=== PATIENT | female | born 1960 | race Caucasian/White ===

== ENCOUNTER → 2017-09-13 15:42 | Outpatient (CLI) | payer BC, SELFPAY ==
--- NOTE | 2017-09-13 15:45 | MM_ITS ---
MM Dig screening mamm BI w/CAD CAD Screening COMPARISON: Digital mammograms 08/24/2015 and 08/30/2016 INDICATION: There is no personal or family history of breast cancer. There has been a previous biopsy left breast for benign disease. TECHNIQUE: Standard CC and MLO images were obtained. R2 CAD reviewed. FINDINGS: Again noted is a diffusely dense and heterogenic parenchymal pattern somewhat lessening the sensitivity of mammography. There are few benign-appearing calcifications in each breast. There is a mole marker in each breast. There is no new or suspicious lesion and there are no suspicious microcalcifications. IMPRESSION: Stable exam with dense parenchymal pattern and no suspicious lesion seen BI-RADS Category: 2 Benign Finding(s) RECOMMENDED FOLLOW-UP: 1YR - 1 YEAR FOLLOW-UP (A letter has been sent to the patient regarding results of the study.)
== END ==
PROVIDERS: PCP Family Medicine; Visit Provider Nurse Practitioner Obstetrics & Gynecology
DX: Z12.31 Encounter for screening mammogram for malignant neoplasm of breast (principal)
CPT/HCPCS: 77067

== ENCOUNTER 2017-10-22 19:51 | Emergency (ER) | payer BC, SELFPAY ==
[2017-10-22 20:04] VITALS: BP 165/84; PULSE 88; RESP 18; TEMP 36.6; O2SAT 100; BMI 29.2
--- NOTE | 2017-10-22 20:08 | HMH.EDUTC ---
[facility] [place] Disposition Clinical Impression: URI (upper respiratory infection) Qualifiers: URI type: unspecified URI Qualified Code(s): J06.9 - Acute upper respiratory infection, unspecified Disposition: Home, Self-Care Condition on Discharge: Good Instructions: Sore Throat, DI for Cough -- Adult, DI for Nasal Congestion Additional Instructions: * Monitor Temp. Tylenol and/or Ibuprofen as needed. ER if fever is no less than 101 despite alternating Tylenol and Ibuprofen * Encourage fluids, water, Gatorade, powerade, pedialyte if infant/toddler/or child * Warm salt water gargles for throat irritation *Warm fluids *Sore throat lozenges *Sleep elevated *humidifier or vaporizer Lots of rest Increase fluids, water, Gatorade, powerade *Flonase 2 sprays each nostril daily but may take 2-3 days to notice improvement with it Follow up IMMEDIATELY for new or worsening of symptoms OR no noticeable improvement over the next 48-72 hours. 911 immediately for any life threatening symptoms such as chest pain or difficulty breathing Prescriptions: Azithromycin [Z-David 250mg Tab] 250 mg PO UD DOSE PK #6 tab Dextromethorphan Polistirex [Delsym] 10 ml PO Q12H PRN #350 avtar.er.12h PRN Reason: Cough Fluticasone Propionate [Flonase 50mcg nasal spray 16gm] 2 spr NS DAILY #1 bottle predniSONE [Prednisone 20mg Tab] 20 mg PO BID #10 tab Referrals: Cash Schrader MD [Primary Care Provider] - Forms: Work/School Release Time of Disposition: 20:22 Medical Decision Making - Medical Records Medical records reviewed: Yes: I reviewed the patient's medical records. Vital Signs: 10/22/17 20:04 Temperature 97.8 F Temperature Source Temporal Artery Scan Pulse Rate [Right] 88 Respiratory Rate 18 Blood Pressure [Right Arm] 165/84 Blood Pressure Mean [Right Arm] 111 Blood Pressure Source [Right Arm] Automatic Cuff Blood Pressure Position [Right Arm] Sitting 02 Sat by Pulse Oximetry 100 Oxygen Delivery Method Room Air - Carlos Inquiry Pt receiving controlled substance: No Carlos was queried for this patient: No [facility] [place] HPI - General Stated complaint: congestion Mode of Arrival: Ambulatory Source of Information: Patient Limitations: No Limitations Description of Symptoms (Recalled from Triage Doc. by RN): COUGH, CONGESTION BEGAN SATURDAY HEENT Symptoms (Recalled from RN notes): Yes Resp Symptoms (Recalled from RN notes): No Skin Symptoms (Recalled from RN notes): No MS Symptoms (Recalled from RN notes): No Functional Status (Recalled from RN notes): N - History of Present Illness Provider Complaint: Patient state that she has not been feeling well since Saturday States that she is having sinus drainage cough and sore throat State that she has taken several over the counter medications but none have helped much States that she has continued to have sore throat and drainage and felt like it may be trying to move down to her chest area and she wanted to get seen and treated before then - Related Data Previous Rx's Medication Instructions Recorded Azithromycin [Z-David 250mg Tab] 250 mg PO UD DOSE PK #6 tab 10/22/17 Dextromethorphan Polistirex 10 ml PO Q12H PRN #350 avtar.er.12h 10/22/17 [Delsym] Fluticasone Propionate [Flonase 2 spr NS DAILY #1 bottle 10/22/17 50mcg nasal spray 16gm] predniSONE [Prednisone 20mg 20 mg PO BID #10 tab 10/22/17 Tab] Allergies Allergy/AdvReac Type Severity Reaction Status Date / Time No Known Allergies Allergy Verified 10/22/17 20:07 - Worker's Comp Is this a Worker's Comp case?: No [facility] History I have reviewed the patient's past medical history: Yes Medical History: Reports:: Hypertension - Social History Alcohol Intake: never - Psychiatric History Expresses thoughts of harming self/others: None Suicide Plan Description: No Plan ROS Obtained: Yes All systems reviewed & no additional complaints - ENT Ears, Nose, Mouth, and Throat: Reports headache(s), Reports nasal congestion, Re
--- NOTE | 2017-10-22 20:16 | ED_ITS ---
[facility] [place] Clinical Impression: URI (upper respiratory infection) Qualifiers: URI type: unspecified URI Qualified Code(s): J06.9 - Acute upper respiratory infection, unspecified Disposition: Home, Self-Care Condition on Discharge: Good Instructions: Sore Throat, DI for Cough -- Adult, DI for Nasal Congestion Additional Instructions: * Monitor Temp. Tylenol and/or Ibuprofen as needed. ER if fever is no less than 101 despite alternating Tylenol and Ibuprofen * Encourage fluids, water, Gatorade, powerade, pedialyte if infant/toddler/or child * Warm salt water gargles for throat irritation *Warm fluids *Sore throat lozenges *Sleep elevated *humidifier or vaporizer Lots of rest Increase fluids, water, Gatorade, powerade *Flonase 2 sprays each nostril daily but may take 2-3 days to notice improvement with it Follow up IMMEDIATELY for new or worsening of symptoms OR no noticeable improvement over the next 48-72 hours. 911 immediately for any life threatening symptoms such as chest pain or difficulty breathing Prescriptions: Azithromycin [Z-David 250mg Tab] 250 mg PO UD DOSE PK #6 tab Dextromethorphan Polistirex [Delsym] 10 ml PO Q12H PRN #350 avtar.er.12h PRN Reason: Cough Fluticasone Propionate [Flonase 50mcg nasal spray 16gm] 2 spr NS DAILY #1 bottle predniSONE [Prednisone 20mg Tab] 20 mg PO BID #10 tab Referrals: Cash Schrader MD [Primary Care Provider] - Forms: Work/School Release Time of Disposition: 20:22 Medical Decision Making - Medical Records Medical records reviewed: Yes: I reviewed the patient's medical records. Vital Signs: 10/22/17 20:04 Temperature 97.8 F Temperature Source Temporal Artery Scan Pulse Rate [Right] 88 Respiratory Rate 18 Blood Pressure [Right Arm] 165/84 Blood Pressure Mean [Right Arm] 111 Blood Pressure Source [Right Arm] Automatic Cuff Blood Pressure Position [Right Arm] Sitting 02 Sat by Pulse Oximetry 100 Oxygen Delivery Method Room Air - Carlos Inquiry Pt receiving controlled substance: No Carlos was queried for this patient: No [facility] [place] HPI - General Stated complaint: congestion Mode of Arrival: Ambulatory Source of Information: Patient Limitations: No Limitations Description of Symptoms (Recalled from Triage Doc. by RN): COUGH, CONGESTION BEGAN SATURDAY HEENT Symptoms (Recalled from RN notes): Yes Resp Symptoms (Recalled from RN notes): No Skin Symptoms (Recalled from RN notes): No MS Symptoms (Recalled from RN notes): No Functional Status (Recalled from RN notes): N - History of Present Illness Provider Complaint: Patient state that she has not been feeling well since Saturday States that she is having sinus drainage cough and sore throat State that she has taken several over the counter medications but none have helped much States that she has continued to have sore throat and drainage and felt like it may be trying to move down to her chest area and she wanted to get seen and treated before then - Related Data Previous Rx's Medication Instructions Recorded Azithromycin [Z-David 250mg Tab] 250 mg PO UD DOSE PK #6 tab 10/22/17 Dextromethorphan Polistirex 10 ml PO Q12H PRN #350 avtar.er.12h 10/22/17 [Delsym] Fluticasone Propionate [Flonase 2 spr NS DAILY #1 bottle 10/22/17 50mcg nasal spray 16gm] predniSONE [Prednisone 20mg 20 mg PO BID #10 tab 10/22/17 Tab] Allergies Isauro
[2017-10-22 20:23] VITALS: BP 165/84; PULSE 88; RESP 18; TEMP 36.6
== END 2017-10-22 20:24 | disposition home or self-care (01) ==
PROVIDERS: Emergency Provider Nurse Practitioner; PCP Family Medicine
DX: J06.9 Acute upper respiratory infection, unspecified (principal); I10 Essential (primary) hypertension
CPT/HCPCS: 99202

== ENCOUNTER → 2018-09-15 08:41 | Outpatient (CLI) | payer BC, SELFPAY ==
--- NOTE | 2018-09-15 08:45 | MM_ITS ---
MM Dig screening mamm BI w/CAD ORDERING PHYSICIAN : Cash Schrader MD PATIENT AGE: 57 years GENDER: Female COMPARISON: August 20172016 INDICATION: . Routine Screening Mammogram no hormones. No new complaints... Previous benign stereotactic/ excisional biopsy left breast. Family history. Unremarkable TECHNIQUE: Standard CC and MLO images were obtained. R2 CAD reviewed. Additional axillary cc view both breast Findings. Heterogeneous moderately dense breast bilaterally-. Mammography is slightly decreased sensitivity in breast of this denser character but No significant new findings. But no new areas of significant concern. No dominant nor suspicious mass. No suspicious calcifications. . A few benign appearing calcifications bilateral. RIGHT BREAST:Stable right breast no new areas concern. LEFT BREAST: There is a small area moderately dense calcifications which forms partial ring. This ringlet pattern of calcification at the medial inferior left breast is slightly more evident than previous study but strongly favor is a benign feature and follow-up would be adequate... . No mass or significant findings otherwise. Bilateral follow-up in one year suggested IMPRESSION: ...... Moderately dense heterogeneous breast bilaterally do slightly decreased sensitivity of mammography but with no new areas of significant concern . Small ringlike area of calcifications at the inferior left breast suggest benign calcification pattern and can be followed.. Follow-up bilateral mammogram one year recommended and should be encouraged.. BI-RADS Category: 2 Benign Finding(s) 2 RECOMMENDED FOLLOW-UP: 1YR 1 YEAR FOLLOW-UP (A letter has been sent to the patient regarding results of the study.)
== END ==
PROVIDERS: PCP Family Medicine; Visit Provider Family Medicine
DX: Z12.31 Encounter for screening mammogram for malignant neoplasm of breast (principal)
CPT/HCPCS: 77067

== ENCOUNTER → 2019-09-24 08:51 | Outpatient (CLI) | payer BC, SELFPAY ==
--- NOTE | 2019-09-24 08:55 | MM_ITS ---
PROCEDURE: MM DIG SCREENING MAMM BI W/CAD CLINICAL INDICATION: SCREENING There is no personal or family history of breast cancer. There has been a previous biopsy breast for benign disease. COMPARISON: [facility] DIG MAMM-SCREEN RANDAL W/CAD from 08/30/2016 [facility] MM Dig screening mamm BI w/CAD from 09/13/2017 [facility] MM Dig screening mamm BI w/CAD from 09/15/2018 TECHNIQUE: Standard CC and MLO images and 3D Tomosynthesis was obtained. R2 CAD reviewed. FINDINGS: Prominent diffuse heterogenic fibroglandular densities are seen in both breasts somewhat lessening the sensitivity of mammography. There are mole markers on each breast. There are benign-appearing calcifications in each breast. Images are most helpful and this type of dense breast parenchyma and there is no suspicious abnormality seen. There are no suspicious microcalcifications. IMPRESSION: Diffusely dense parenchymal pattern with no suspicious lesions seen BI-RAD Category: 2 Benign Finding(s) FOLLOW-UP: 1YR 1 Year Follow-up (A letter has been sent to the patient regarding results of the study.) Dictated by: Dr. Hammad Browne MD 09/27/2019 10:[address] Hammad Browne MD in [place] 09/27/2019 10:08
== END ==
PROVIDERS: PCP Family Medicine; Visit Provider Family Medicine
DX: Z12.31 Encounter for screening mammogram for malignant neoplasm of breast (principal)
CPT/HCPCS: 77063; 77067

== ENCOUNTER → 2021-02-28 09:46 | Outpatient (CLI) | payer BC, SELFPAY ==
--- NOTE | 2021-02-28 09:49 | MM_ITS ---
PROCEDURE: MM DIG SCREENING MAMM BI W/CAD Digital Breast Tomosynthesis Included CLINICAL INDICATION: SCREENING COMPARISON: MG [facility] MM Dig screening mamm BI w/CAD from 09/13/2017 MG [facility] MM Dig screening mamm BI w/CAD from 09/15/2018 MG MM DIG SCREENING MAMM BI W/CAD from 09/24/2019 TECHNIQUE: Standard CC and MLO images and 3D Tomosynthesis was obtained. R2 CAD reviewed. FINDINGS: Heterogeneously dense fibroglandular tissue which decreases sensitivity of mammography. Scattered areas of asymmetry once again noted unchanged. No malignant appearing mass or malignant-appearing microcalcification. Bilateral benign-appearing calcifications. IMPRESSION: Benign findings. BI-RAD Category: 2 Benign Finding FOLLOW-UP: 1 YR 1 Year Follow-up (A letter has been sent to the patient regarding results of the study.) Dictated by: Socrates Leos MD 03/01/2021 09:17 Socrates Leos MD in [place] 03/01/2021 09:17
== END ==
PROVIDERS: PCP Family Medicine; Visit Provider Family Medicine
DX: Z12.31 Encounter for screening mammogram for malignant neoplasm of breast (principal)
CPT/HCPCS: 77063; 77067

== ENCOUNTER → 2022-03-01 10:23 | Outpatient (CLI) | payer BC, SELFPAY ==
--- NOTE | 2022-03-01 10:27 | MM_ITS ---
PROCEDURE INFORMATION: Exam: MG Bilateral Screening 3D Mammography Exam date and time: 03/01/2022 10:19 AM Age: 61 years old Clinical indication: Screening examination TECHNIQUE: Imaging protocol: Bilateral Screening tomosynthesis and 2D mammography including computer-aided detection (CAD) when performed. COMPARISON: 1. MG MM DIG SCREENING MAMM BI W/CAD 02/28/2021 9:52 AM 2. MG MM DIG SCREENING MAMM BI W/CAD 09/24/2019 9:02 AM FINDINGS: MAMMOGRAPHY: Breast composition: The breasts are heterogeneously dense, which may obscure small masses. Mass: None. Architectural distortion: None. Calcifications: No suspicious calcifications. Asymmetric density: None. Skin thickening: None. Axillary adenopathy: None. IMPRESSION: No mammographic evidence of malignancy. Annual screening is recommended unless otherwise clinically indicated. ASSESSMENT: BI-RADS Category 1: Negative
== END ==
PROVIDERS: PCP Family Medicine; Visit Provider Family Medicine
DX: Z12.31 Encounter for screening mammogram for malignant neoplasm of breast (principal)
CPT/HCPCS: 77063; 77067

== ENCOUNTER → 2023-03-04 10:17 | Outpatient (CLI) | payer BC, SELFPAY ==
--- NOTE | 2023-03-04 10:21 | MM_ITS ---
PROCEDURE INFORMATION: Exam: MG Bilateral Screening 3D Mammography Exam date and time: 03/04/2023 10:18 AM Age: 62 years old Clinical indication: Screening. No family history of breast cancer. TECHNIQUE: Imaging protocol: Bilateral Screening tomosynthesis and 2D mammography including computer-aided detection (CAD) when performed. COMPARISON: 1. MG MM DIG SCREENING MAMM BI W/CAD 03/01/2022 10:19 AM 2. MG MM DIG SCREENING MAMM BI W/CAD 02/28/2021 9:52 AM 3. MG MM DIG SCREENING MAMM BI W/CAD 09/24/2019 9:02 AM 4. MG [facility] MM Dig screening mamm BI w/CAD 09/15/2018 9:04 AM FINDINGS: MAMMOGRAPHY: Breast composition: The breasts are heterogeneously dense, which may obscure small masses. Mass: No suspicious mass. Architectural distortion: None. Calcifications: No suspicious calcifications. Asymmetric density: None. Skin thickening: None. Axillary adenopathy: None. IMPRESSION: No mammographic evidence of malignancy. Annual screening is recommended unless otherwise clinically indicated. ASSESSMENT: BI-RADS Category 1: Negative
== END ==
PROVIDERS: PCP Family Medicine; Visit Provider Family Medicine
DX: Z12.31 Encounter for screening mammogram for malignant neoplasm of breast (principal)
CPT/HCPCS: 77063; 77067

== ENCOUNTER 2023-11-26 08:36 | Day surgery (SDC) | payer BC, SELFPAY ==
[2023-11-22 10:22] VITALS: BMI 28.3
[2023-11-26] VITALS (13 sets, daily range): BP systolic 142–181; BP diastolic 70–84; PULSE 76–87; RESP 16–18; TEMP 36.1–37.1; O2SAT 94–98
[2023-11-26] MEDS: PHENYLEPHRINE 2.5% OPHTH SOLN 2ML 0.0500000000000000028 ML OP ×3 (10:00→10:07)
[2023-11-26] MEDS: TETRACAINE 0.5% OPTH SOL 15ML OP ×3 (10:00→10:07)
[2023-11-26] MEDS: CYCLOPENTOLATE 2% OPHTH SOLN 2ML BOTTLE OP ×3 (10:00→10:07)
[2023-11-26] MEDS: SODIUM CHLORIDE 0.9% 10ML FLUSH SYRINGE 10 ML IV ×2 (10:05→11:11)
[2023-11-26] MEDS: MIDAZOLAM 2MG/2ML VIAL 1 MG IV (11:00)
[2023-11-26] MEDS: TOBRAMYCIN/DEX OPTH SUSP 2.5ML OP (11:11)
[2023-11-26] MEDS: LIDOCAINE 1% PF 2ML AMPULE 2 ML IJ (11:11)
[2023-11-26] MEDS: TIMOLOL 0.5% OPTH SOLN 5ML OP (11:11)
== END 2023-11-26 12:00 | disposition home or self-care (01) ==
LOC: OR 08:37
PROVIDERS: PCP Family Medicine; Visit Provider Ophthalmology
DX: H25.811 Combined forms of age-related cataract, right eye (principal); H53.8 Other visual disturbances; H02.831 Dermatochalasis of right upper eyelid
CPT/HCPCS: 66984; V2632

== ENCOUNTER 2024-03-06 08:10 | Outpatient (CLI) | payer BC, SELFPAY ==
--- NOTE | 2024-03-06 08:13 | MM_ITS ---
PROCEDURE INFORMATION: Exam: MG Bilateral Screening 3D Mammography Exam date and time: 03/06/2024 8:11 AM Age: 63 years old Clinical indication: Screening. No family history of breast cancer. TECHNIQUE: Imaging protocol: Bilateral Screening tomosynthesis and 2D mammography including computer-aided detection (CAD) when performed. COMPARISON: 1. MG MM DIG SCREENING MAMM BI W/CAD 03/04/2023 10:18 AM 2. MG MM DIG SCREENING MAMM BI W/CAD 03/01/2022 10:19 AM 3. MG MM DIG SCREENING MAMM BI W/CAD 02/28/2021 9:52 AM 4. MG MM DIG SCREENING MAMM BI W/CAD 09/24/2019 9:02 AM FINDINGS: MAMMOGRAPHY: Breast composition: The breasts are heterogeneously dense, which may obscure small masses. Mass: No suspicious mass. Mild splint 2nd thank you know it is a click in Architectural distortion: None. Calcifications: No suspicious calcifications. Asymmetric density: None. Skin thickening: None. Axillary adenopathy: None. IMPRESSION: No mammographic evidence of malignancy. Annual screening is recommended unless otherwise clinically indicated. ASSESSMENT: BI-RADS Category 1: Negative
--- NOTE | 2024-03-06 08:30 | HMH.ITSTN ---
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 As she was getting her checked in , I went ahead and got the 8:00 that was checked in and ready . This is why this patient had to wait
== END 2024-03-06 23:59 | disposition home or self-care (01) ==
LOC: RAD 08:10
PROVIDERS: PCP Registered Nurse; Visit Provider Family Medicine
DX: Z12.31 Encounter for screening mammogram for malignant neoplasm of breast (principal)
CPT/HCPCS: 77063; 77067

== ENCOUNTER 2024-03-10 07:29 | Day surgery (SDC) | payer BC, SELFPAY ==
[2024-03-10 07:45] VITALS: BMI 27.1
[2024-03-10] MEDS: CYCLOPENTOLATE 2% OPHTH SOLN 2ML BOTTLE OP ×3 (07:45→07:55)
[2024-03-10] MEDS: PHENYLEPHRINE 2.5% OPHTH SOLN 2ML OP ×3 (07:45→07:55)
[2024-03-10] MEDS: TETRACAINE 0.5% OPTH SOL 15ML OP ×3 (07:45→07:55)
[2024-03-10 07:49] VITALS: BP 155/83; PULSE 73; RESP 18; TEMP 36.3; O2SAT 97
[2024-03-10] MEDS: SODIUM CHLORIDE 0.9% 10ML FLUSH SYRINGE 10 ML IV ×2 (07:57→09:05)
[2024-03-10] MEDS: MIDAZOLAM 2MG/2ML VIAL 1 MG IV (09:03)
[2024-03-10 09:05] VITALS: BP 138/70; PULSE 67; RESP 16; TEMP 36.4; O2SAT 96
[2024-03-10] MEDS: LIDOCAINE 1% PF 2ML AMPULE 2 ML IJ (09:05)
[2024-03-10] MEDS: TOBRAMYCIN/DEX OPTH SUSP 2.5ML OP (09:05)
[2024-03-10] MEDS: TIMOLOL 0.5% OPTH SOLN 5ML OP (09:05)
[2024-03-10 09:10] VITALS: BP 148/78; PULSE 79; RESP 16; TEMP 36.4; O2SAT 98
[2024-03-10 09:15] VITALS: BP 161/84; PULSE 79; RESP 16; TEMP 36.4; O2SAT 98
[2024-03-10 09:20] VITALS: BP 148/82; PULSE 75; RESP 16; TEMP 36.4; O2SAT 99
[2024-03-10 09:25] VITALS: BP 150/77; PULSE 69; RESP 16; TEMP 36.6; O2SAT 98
--- NOTE | 2024-03-10 12:08 | P.PCN_ITS ---
[facility] Procedure Note Date: 03/10/24 Time: 12:08 Procedure Note:: Preoperative Diagnosis: Cataract combined NS Cortical Complex [Left] Eye Postop diagnosis: same Operation: Microscopic phacoemulsification with intraocular lens implant Left] Eye Specimen: None Blood Loss: None The patient was examined in the office with a complaint of poor vision in the [left] eye. The patient reports that this interferes with ADLs such as reading, watching TV and/or driving or the vision is like looking through a foggy haze and is very troubling. The patient was examined and found to have a visually significant cataract with best corrected vision of [20/400] by refraction and/or glare testing. Treatment options, risks and benefits were explained and the patient elected to have cataract surgery in an attempt to improve their vision. The patient had the eye anesthetized with topical tetracaine, the eye ways prepped and draped in the usual fashion for cataract surgery. A paracentesis and a temporal keratotomy were made. 0.2cc of 1% lidocaine PF was placed into the anterior chamber. And aqueous/viscoelastic exchange was done and a 360 degree capsulorexis was performed. Through hydrodissection and delineation with BSS on a cannula was done. The lens nucleus was phecoemulsified with CDE of [5.02]. Residual cortical material was removed using automated I&A The capsular bag was deepened with viscoelastica and a PCIOL was placed in the capsular bag with good centration and stability. Residual viscoelastic was removed using automated I&A. The keratotomy incision was hydrated with BSS on a cannula. The wound were checked and found to be water tight. IOP was checked digitally and adjusted as needed so as not to be too high. 1 drop of timolol 0.5%, ofloxacin, prednisolone acetate and ketorolac was instilled and eye shield taped over the eye. The patient was taken to recovery in good condition and will be seen postoperatively.
== END 2024-03-10 09:38 | disposition home or self-care (01) ==
PROVIDERS: PCP Family Medicine; Visit Provider Ophthalmology
PROC: (CPT 66984; principal; 2024-03-10 09:00)
DX: H25.12 Age-related nuclear cataract, left eye (principal)
CPT/HCPCS: 66984; J2250; V2632

== ENCOUNTER 2025-06-28 08:12 | Outpatient (CLI) | payer MEDICARE, SELFPAY ==
--- NOTE | 2025-06-28 08:15 | MM_ITS ---
PROCEDURE INFORMATION: Exam: MG Bilateral Screening 3D Mammography Exam date and time: 06/28/2025 8:27 AM Age: 64 years old Clinical indication: Screening examination TECHNIQUE: Imaging protocol: Bilateral Screening tomosynthesis and 2D mammography including computer-aided detection (CAD) when performed. COMPARISON: MG MM DIG SCREENING MAMM BI W/CAD 03/06/2024 8:11 AM FINDINGS: MAMMOGRAPHY: Breast composition: The breasts are heterogeneously dense, which may obscure small masses. Mass: None. Architectural distortion: None. Calcifications: No suspicious calcifications. Asymmetric density: None. Skin thickening: None. Axillary adenopathy: None. IMPRESSION: No mammographic evidence of malignancy. Annual screening is recommended unless otherwise clinically indicated. ASSESSMENT: BI-RADS Category 1: Negative.
--- NOTE | 2025-06-28 08:35 | XR_ITS ---
FINAL REPORT TECHNIQUE: Bone densitometry calculations of the lumbar spine and left hip were obtained. CLINICAL HISTORY: SCREENING FINDINGS: Using L1-4, the bone mineral density of the spine is 0.923 g/cm2, corresponding to T-score of -1.1. Using the left hip, the bone mineral density of the femoral neck is 0.751 g/cm2, corresponding to a T-score of -0.9. Using the right hip, the bone mineral density of the femoral neck is 0.741 g/cm2, corresponding to a T-score of -1.0. NOTE: T-score: Standard deviation compared with peak bone mass of young adult mean. *Following the recommendations of the International Society of Bone densitometry, classification of hip BMD is based on the lower of two T-scores; total hip or femoral neck. IMPRESSION: Normal bone mineral density of both hips. Diminished bone mineral density of the lumbar spine consistent with osteopenia. FRAX data reports fracture risk at 8% for major osteoporotic fracture and 0.6% for hip fracture. Reviewed, Interpreted and Dictated by Peewee Ventura MD Transcribed by Mary Villa Authenticated and [facility]
== END 2025-06-28 23:59 | disposition home or self-care (01) ==
LOC: RAD 08:12
PROVIDERS: PCP Family Medicine; Visit Provider Family Medicine
DX: Z12.31 Encounter for screening mammogram for malignant neoplasm of breast (principal); M85.88 Other specified disorders of bone density and structure, other site; R93.6 Abnormal findings on diagnostic imaging of limbs; R92.333 Mammographic heterogeneous density, bilateral breasts; Z13.820 Encounter for screening for osteoporosis; Z78.0 Asymptomatic menopausal state
CPT/HCPCS: 77063; 77067; 77080